=== PATIENT | female | born 1955 | race African-American/Black ===

== ENCOUNTER → 2017-08-29 | Outpatient (CLI) | payer OTHER ==
[~2017-08-29] MED LIST: ATENOLOL50 MG PO; CIPRO 500MG TA500 MG PO; CIPRO250 MG/5 M PO; DIOVAN HCT PO; LEVAQUIN 750MG750 M1 PO; PAXIL 10MG10 MG PO; PREDNISONE 5MG5 MG PO; PREMARIN 0.60.625 MG PO; PYRIDIUM 100MG100 MG PO; RT ALBUTER2.5 MG/0.5 IH; TAMIFLU 75MG75 MG PO; TESSALON P100 MG/CAP PO; TUSS PO; ZITHROMAX Z PA250 MG PO; [UNRECOGNIZED DRUG - OTHER]
== END ==
LOC: MC.RAD 07:40
DX: Z12.31 Encounter for screening mammogram for malignant neoplasm of breast (principal)

== ENCOUNTER → 2018-09-25 | Outpatient (CLI) | payer OTHER | LOC: MC.RAD 15:20 | DX: Z12.31 Encounter for screening mammogram for malignant neoplasm of breast (principal) ==

== ENCOUNTER → 2018-11-20 | Outpatient (CLI) | payer OTHER | LOC: COL.RAD 11:03 | DX: M25.312 Other instability, left shoulder (principal); M75.92 Shoulder lesion, unspecified, left shoulder ==

== ENCOUNTER → 2019-11-01 | Outpatient (CLI) | payer OTHER | LOC: MC.RAD 16:43 | DX: Z12.31 Encounter for screening mammogram for malignant neoplasm of breast (principal) ==

== ENCOUNTER 2020-04-14 16:05 | Outpatient (RCR) | payer OTHER | END 2020-05-07 07:53 | disposition home or self-care (01) | LOC: WSC 16:05 | DX: M76.70 Peroneal tendinitis, unspecified leg (principal) ==

== ENCOUNTER → 2020-11-04 | Outpatient (CLI) | payer OTHER | LOC: MC.RAD 16:55 | DX: Z12.31 Encounter for screening mammogram for malignant neoplasm of breast (principal) ==

== ENCOUNTER → 2020-11-12 | Outpatient (CLI) | payer OTHER | LOC: COL.PUL 12:54 | DX: R06.02 Shortness of breath (principal) | CPT/HCPCS: J7674 ==

== ENCOUNTER 2021-04-28 11:10 | Outpatient (RCR) | payer OTHER | END 2021-05-01 10:13 | disposition home or self-care (01) | LOC: PT.GENESIS 11:10 | DX: M71.21 Synovial cyst of popliteal space [Baker], right knee (principal) ==

== ENCOUNTER 2021-06-08 14:00 | Outpatient (RCR) | payer OTHER | END 2021-07-30 | disposition home or self-care (01) | LOC: PT.GENESIS | DX: Z01.818 Encounter for other preprocedural examination (principal); M71.21 Synovial cyst of popliteal space [Baker], right knee ==

== ENCOUNTER → 2021-12-10 | Outpatient (CLI) | payer OTHER | LOC: MC.RAD 14:30 | DX: Z12.31 Encounter for screening mammogram for malignant neoplasm of breast (principal) ==